=== PATIENT | male | born 1980 | race Caucasian/White ===

== ENCOUNTER 2021-10-28 08:04 | Emergency (ER) | payer MEDICAID ==
[~2021-10-28] VITALS: Ht 177.8 cm; Wt 90.0 kg
[2021-10-28 08:06] VITALS: BP 131/82
[2021-10-28] MEDS ORDERED: VISCOUS LIDOCAINE 2% 15 ML UDC PO STA (08:53)
[2021-10-28] MEDS ORDERED: DICYCLOMINE 10 MG/5 ML ORAL SYR PO STA (08:53)
[2021-10-28] MEDS ORDERED: MAGNESIUM/ALUMINUM HYDROXIDE/SIMETHICONE 30ML UDC PO STA (08:53)
== END 2021-10-28 09:17 | disposition home or self-care (01) ==
LOC: ER 08:04
DX: T65.891A Toxic effect of other specified substances, accidental (unintentional), initial encounter (principal); T27.6XXA Corrosion of other parts of respiratory tract, initial encounter; Y93.E9 Activity, other interior property and clothing maintenance; Y92.9 Unspecified place or not applicable
CPT/HCPCS: 99284

== ENCOUNTER 2023-04-05 09:25 | Emergency (ER) | payer MEDICAID ==
[~2023-04-05] VITALS: Ht 182.9 cm; Wt 100.0 kg
[2023-04-05 09:32] VITALS: PULSE 98
[2023-04-05 09:34] VITALS: BP 137/75; RESP 16; TEMP 97.5; O2SAT 97
[2023-04-05] MEDS ORDERED: DOXY100C5 MT (11:01)
[2023-04-05 11:21] LABS: CLARITY URINE TURBID (CLEAR); COLOR URINE YELLOW (YELLOW); GLUCOSE URINE NEGATIVE (NEGATIVE); KETONES URINE TRACE (NEGATIVE); LEUKOCYTE ESTERASE URINE 3+ (NEGATIVE); NITRITE URINE NEGATIVE (NEGATIVE); OCCULT BLOOD URINE 1+ (NEGATIVE); PROTEIN URINE 1+ (NEGATIVE); SPECIFIC GRAVITY URINE 1.028 (1.005-1.030)
[2023-04-05] MEDS: CEFTRIAXONE SODIUM 500MG VIAL IM ONE (11:30)
[2023-04-05 11:38] LABS: WBC URINE TNTC /hpf (0-2)
[2023-04-05 11:40] LABS: SQUAMOUS EPITHELIAL CELL URINE 1+ /lpf (RARE/1+)
[2023-04-05 11:41] LABS: BACTERIA URINE 1+
[2023-04-05] MEDS ORDERED: QUET25TA MT (12:00)
[2023-04-05] MEDS ORDERED: IBUP-2029 MT (12:00)
[2023-04-05] MEDS ORDERED: PHEN-815 MT (12:01)
[2023-04-05] MEDS: IBUPROFEN 600MG TABLET PO ONE (12:17)
[2023-04-08 09:10] LABS: CHLAMYDIA TRACHOMATIS NAA Negative (Negative); NEISSERIA GONORRHOEAE NAA Positive (Negative)
== END 2023-04-05 12:17 | disposition home or self-care (01) ==
LOC: ER 09:25
DX: A64 Unspecified sexually transmitted disease (principal); Z98.890 Other specified postprocedural states
CPT/HCPCS: 99283; 87491; 87591; 81003; 87086; 87077; 96372; J0696